=== PATIENT | male | born 1950 | race Caucasian/White ===

== ENCOUNTER 2020-06-14 12:51 | Inpatient (IN) | payer OTHER ==
[~2020-06-14] VITALS: Ht 175.3 cm; Wt 53.3 kg
[2020-06-14] MEDS ORDERED: ASPirin 81 mg TAB PO ONE (13:00)
[2020-06-14] MEDS ORDERED: LABETALOL HCL 5 MG/ML 4ML SYRINGE IV ONE (13:00)
[2020-06-14 13:47] LABS: Basophils # (auto) 0.1 10 ^3/uL (0-0.2); Basophils % (auto) 0.9 % (0.0-2.0); Eosinophils # (auto) 0.2 10 ^3/uL (0-0.8); Eosinophils % (auto) 2.7 % (0.0-7.0); Hematocrit 45.1 % (41.0-53.0); Hemoglobin 15.4 g/dL (13.5-17.5); Lymphocytes % (auto) 31.8 % (10.0-50.0); Mean Corpuscular Hemoglobin 31.5 pg (28.0-32.0); Mean Corpuscular Hgb Conc. 34.1 g/dL (32.0-36.0); Mean Corpuscular Volume 92.5 fL (80.0-100.0); Monocytes # (auto) 0.6 10 ^3/uL (0-1.3); Monocytes % (auto) 8.6 % (0.0-12.0); Neutrophils # (auto) 3.6 10 ^3/uL (1.6-8.6); Platelet Count (auto) 290 10^3/uL (140-450); Red Blood Cells 4.88 10^6/uL (4.5-5.90); Red Cell Distribution Width 14.1 % (11.8-14.3); White Blood Cell 6.4 10^3/uL (4.4-10.8)
[2020-06-14 14:09] LABS: Alanine Aminotransferase 23 U/L (16-61); Albumin 4.3 g/dL (3.4-5.0); Anion Gap 7 (5-15); Aspartate Aminotransferase 18 U/L (15-37); Blood Urea Nitrogen 15 mg/dL (7-18); Calcium 9.1 mg/dL (8.5-10.1); Carbon Dioxide 28 mmol/L (21-32); Chloride 103 mmol/L (98-107); GFR African American 81 mL/min; GFR Non-African American 67 mL/min; Glucose 115 mg/dL (74-106); Magnesium 1.9 mg/dL (1.6-2.6); Potassium 3.9 mmol/L (3.5-5.1); Sodium 138 mmol/L (136-145)
[2020-06-14 14:26] LABS: Alkaline Phosphatase 118 U/L (45-117); Bilirubin, Total 0.5 mg/dL (0.2-1.0); Total Protein 8.2 g/dL (6.4-8.2)
[2020-06-14] MEDS ORDERED: MORPHINE SULF INJ 2 MG/ML SYRINGE 1ML IV PRN ×2 (15:15)
[2020-06-14] MEDS ORDERED: DEXTROSE (50%) 50ML SYRG IV PRN (15:15)
[2020-06-14] MEDS ORDERED: ONDANSETRON HCL 4 MG/2 ML VIAL IV PRN (15:15)
[2020-06-14] MEDS ORDERED: NITROGLYCERIN 0.4 MG SL TAB SL PRN (15:15)
[2020-06-14] MEDS ORDERED: ACETAMINOPHEN 500 MG TAB PO PRN (15:15)
[2020-06-14] MEDS ORDERED: HYDROcodone-ACET 5/325MG TAB PO PRN (15:15)
[2020-06-14] MEDS: InsuLIN REG 1unit/0.01ml Soln (100units/ml) SC SCH ×2 (17:00→22:00)
[2020-06-14] MEDS: ACCU-CHEK COMFORT CURVE STRIP VI SCH ×2 (17:06→22:34)
--- NOTE | 2020-06-14 17:51 | NUR ---
Telemetry admit from ER SHERLYN SHERMAN admitted to Telemetry unit after SBAR received. Patient orienteD TO primary RN, unit, room, bed, and unit policies regarding patient care and visiting hours. Patient now on continuous telemetry monitoring, tele box #49 and telemetry reading on arrival to unit is sinus rhythm HR 87. Patient weighed by bedscale and encouraged to call if they need something. All questions and concerns addressed, patient verbalized understanding.
[2020-06-14] MEDS ORDERED: METF-370 PO (18:32)
[2020-06-14] MEDS ORDERED: BENA40TA83 PO (18:32)
[2020-06-14] MEDS ORDERED: ATEN50TA PO (18:32)
[2020-06-14] MEDS ORDERED: DOXA1TAB42 PO ×2 (18:32)
[2020-06-14] MEDS ORDERED: ATOR20TA50 PO (18:32)
[2020-06-14] MEDS ORDERED: HYDR25TA4 PO (18:32)
[2020-06-14 19:02] LABS: Cholesterol 135 mg/dL (< 200)
[2020-06-14 19:04] LABS: HDL Cholesterol 47 mg/dL (40-59); LDL Cholesterol 72 mg/dL (< 100); Triglycerides 125 mg/dL (< 150)
--- NOTE | 2020-06-14 19:09 | NUR ---
PATIENT POCKET KNIFE COLLECTED AND PAGED SECURITY. AWAITING SECURITY TO CALL BACK AND DAIRY FROZEN MANAGER PATIENT BELONGINGS. POCKET KNIFE GIVEN TO THE PRIMARY RN, FILIBERTO.
[2020-06-14] MEDS ORDERED: LOVA40TA72 PO (19:12)
--- NOTE | 2020-06-14 19:40 | NUR ---
Opening Shift Note Assumed care of patient, awake and alert. No S/S of distress/SOB or pain. Discussed on POC and to be NPO after midnight. For stress test tomorrow. Instructed to call for assist PRN, patient verbalized understanding, call light within reach, will continue to monitor for changes Q1hr and PRN.
[2020-06-14 20:00] VITALS: BP 138/80
[2020-06-14 22:00] VITALS: BP 138/80
[2020-06-14] MEDS: ATORVASTATIN 20 MG TAB PO SCH (22:00)
[2020-06-14] MEDS: METOPROLOL TARTRATE 25 MG TAB PO SCH (22:00)
--- NOTE | 2020-06-15 02:30 | NUR ---
Covid swab done per protocol prior to procedure and sent to lab
[2020-06-15 05:00] VITALS: BP 112/67
--- NOTE | 2020-06-15 05:20 | NUR ---
IV insertion IV access obtained, via clean sterile technique by inserting 22 gauge catheter at LFA after [1] attempt(s). IV secured properly. No trauma to site. Patient tolerated well. NOTE: []
[2020-06-15] MEDS: InsuLIN REG 1unit/0.01ml Soln (100units/ml) SC SCH ×4 (07:00→21:16)
[2020-06-15] MEDS: ACCU-CHEK COMFORT CURVE STRIP VI SCH ×4 (07:00→21:05)
[2020-06-15 08:00] VITALS: BP 138/80
[2020-06-15] MEDS ORDERED: ADENOSINE 46 MG in GIVE UN-DILUTED 0 ML IV STA (08:18)
[2020-06-15 09:00] VITALS: BP 135/85
[2020-06-15] MEDS ORDERED: FAMOTIDINE 20 MG TAB PO SCH ×2 (10:00)
[2020-06-15] MEDS: MAGNESIUM OXIDE 400 MG TAB PO SCH (10:14)
[2020-06-15] MEDS: ASPirin 81 mg TAB PO SCH (10:14)
[2020-06-15] MEDS: NICOTINE 7MG/24HR TOPICAL PATCH TD SCH (10:15)
[2020-06-15] MEDS: METOPROLOL TARTRATE 25 MG TAB PO SCH ×2 (10:15→21:06)
[2020-06-15 13:00] VITALS: BP 114/71
--- NOTE | 2020-06-15 13:09 | NUR ---
REPORT GIVEN TO [place] FELDER TO ASSUME CARE.
--- NOTE | 2020-06-15 13:10 | NUR ---
Opening note Assumed care of patient, patient is alert and orientated x4. No sob or distress noted. Bed is locked in lowest position. Side rails are up x2. POC Discussed. Patient laying in bed. All questions answered at this time. Will continue to monitor. q1hr and PRN.
--- NOTE | 2020-06-15 16:00 | NUR ---
Patient reports that he walks fine without symptoms and does not need P.T. intervention.
[2020-06-15 17:00] VITALS: BP 124/80
[2020-06-15] MEDS: ATORVASTATIN 20 MG TAB PO SCH (21:05)
[2020-06-15 22:00] VITALS: BP 133/77
[2020-06-16 05:00] VITALS: BP 103/68
[2020-06-16 06:13] LABS: Basophils # (auto) 0.1 10 ^3/uL (0-0.2); Basophils % (auto) 0.6 % (0.0-2.0); Eosinophils # (auto) 0.3 10 ^3/uL (0-0.8); Eosinophils % (auto) 3.1 % (0.0-7.0); Hematocrit 43.6 % (41.0-53.0); Hemoglobin 14.8 g/dL (13.5-17.5); Lymphocytes # (auto) 2.5 10 ^3/uL (0.4-5.4); Lymphocytes % (auto) 30.2 % (10.0-50.0); Mean Corpuscular Hemoglobin 31.2 pg (28.0-32.0); Mean Corpuscular Hgb Conc. 33.9 g/dL (32.0-36.0); Monocytes # (auto) 0.8 10 ^3/uL (0-1.3); Monocytes % (auto) 10.3 % (0.0-12.0); Neutrophils # (auto) 4.5 10 ^3/uL (1.6-8.6); Neutrophils % (auto) 55.8 % (37.0-80.0); Nucleated Red Blood Cells % 0.1 %; Platelet Count (auto) 289 10^3/uL (140-450); Red Blood Cells 4.74 10^6/uL (4.5-5.90); Red Cell Distribution Width 13.9 % (11.8-14.3); White Blood Cell 8.2 10^3/uL (4.4-10.8)
[2020-06-16] MEDS: ACCU-CHEK COMFORT CURVE STRIP VI SCH ×2 (06:23→11:27)
[2020-06-16] MEDS: InsuLIN REG 1unit/0.01ml Soln (100units/ml) SC SCH ×2 (06:23→11:27)
[2020-06-16 06:30] LABS: Magnesium 2.6 mg/dL (1.6-2.6); Potassium 3.6 mmol/L (3.5-5.1)
[2020-06-16 06:32] LABS: BUN/Creatinine Ratio 17.3
--- NOTE | 2020-06-16 07:22 | NUR ---
Closing note Endorsed care to day shift BRADFORD Resendiz. no sob or distress noted.
--- NOTE | 2020-06-16 07:30 | NUR ---
Opening Shift Note Assumed patient care from NOC RN. Patient currently sitting up in bed eating breakfast, no signs of distress at this time. Denies chest pain/palpitations and SOB at this time. Safety precautions in place, will continue to monitor q1hr and PRN. Call light is within reach.
[2020-06-16 08:52] VITALS: BP 124/61
[2020-06-16] MEDS: ASPirin 81 mg TAB PO SCH (09:26)
[2020-06-16] MEDS: MAGNESIUM OXIDE 400 MG TAB PO SCH (09:26)
[2020-06-16] MEDS: NICOTINE 7MG/24HR TOPICAL PATCH TD SCH (09:27)
[2020-06-16] MEDS: METOPROLOL TARTRATE 25 MG TAB PO SCH (09:28)
--- NOTE | 2020-06-16 11:45 | NUR ---
at Bedside Dr. Courtney at bedside discussing plan of care with patient. Per Dr. Courtney, if cleared by cardio, patient may discharge today. MD aware that patient is refusing home health at this time.
--- NOTE | 2020-06-16 12:15 | NUR ---
Assessment Patient is a 69-year-old male who is alert and oriented. Prior to admission patient lived home with his and functioned independently. Per patient he can care for his own ADL's. Per patient he does not use any medical equipment now. Per patient he will return home to his prior living arrangements post discharge and family will transport him home. Advised patient there is a social service consult for home health safety evaluation, physical therapy, medication management and vitals. Patient refused service stating he has great family support. Informed patient he has the right to participate in all discharge planning. Patient verbalized understanding and agreed to discharge plan. Informed BRADFORD Resendiz and , Dr. Courtney. Addendum: 06/16/20 at 1219 by JAMES GANDARA Amended: Links added.
[2020-06-16 13:00] VITALS: BP 116/73
--- NOTE | 2020-06-16 13:15 | NUR ---
at Station Dr. Lane at station. Per , will discuss echo and stress test results with Dr. Rod. Will await MD orders.
--- NOTE | 2020-06-16 15:00 | NUR ---
Cardio Clearance Per Dr. Lane, patient clear for discharge. Patient to be provided with caffeine abuse and hydration information.
[2020-06-16 15:40] VITALS: BP 116/73
[2020-06-16 16:31] VITALS: BP 110/82
--- NOTE | 2020-06-16 16:45 | NUR ---
Discharge Discharge instructions given as ordered. Encourage to follow up with PMD as instructed. All questions and concerns addressed. Patient verbalized understanding. Medication reconciliation form completed and copy given to patient. Belongings held by Security returned to patient. IVs removed with catheters intact, pressure dressing applied. Telemetry unit returned to ICU. Patient ambulated to vehicle with all personal belongings, accompanied by staff and family member. No distress noted at time of departure. Patient provided with discharge instructions included handout on caffeine abuse. Patient instructed to minimize caffeine intake and increase oral hydration per Dr. Lane request. Patient verbalized understanding.
== END 2020-06-16 16:45 | disposition home or self-care (01) | DRG 310 ==
LOC: ER 12:51 → TELE 12:52 → TELE-WESTW 17:51
PROVIDERS: ADMIT Nurse Practitioner Acute Care; ATTEND Internal Medicine
DX: R00.2 Palpitations (principal); R42 Dizziness and giddiness; I10 Essential (primary) hypertension; J44.9 Chronic obstructive pulmonary disease, unspecified; E11.9 Type 2 diabetes mellitus without complications; E78.5 Hyperlipidemia, unspecified; F17.210 Nicotine dependence, cigarettes, uncomplicated; Z20.828 Contact with and (suspected) exposure to other viral communicable diseases; Z79.84 Long term (current) use of oral hypoglycemic drugs; Z80.9 Family history of malignant neoplasm, unspecified; R53.1 Weakness
CPT/HCPCS: 36415; 71046; 78452; 80048; 80053; 80061; 82962; 83036; 83735; 84443; 84484; 85025; 85379; 87426; 93005; 93017; 93306; G0378; J0153

== ENCOUNTER 2021-11-19 17:54 | Emergency (ER) | payer OTHER ==
[~2021-11-19] VITALS: Ht 172.7 cm; Wt 63.5 kg
[~2021-11-19 17:54] MED LIST: ATEN50TA PO; ATOR20TA50 PO; BENA40TA83 PO; DOXA1TAB42 PO; LOVA40TA72 PO
[2021-11-19 17:58] VITALS: BP 151/94
[2021-11-19 20:54] LABS: Urine Bacteria MANY /hpf (None Seen); Urine Blood 3+ /uL (Negative); Urine Mucus FEW (None Seen); Urine Specific Gravity 1.022 (1.001-1.035); Urine WBC 89 /hpf (0 - 3); Urine WBC Clumps PRESENT /hpf (None Seen)
[2021-11-19] MEDS ORDERED: CIPROFLOXACIN HCL 500 MG TAB PO ONE (21:00)
[2021-11-19] MEDS ORDERED: CIPR-173 PO (21:06)
== END 2021-11-19 21:16 | disposition home or self-care (01) ==
LOC: ER 18:04
DX: N39.0 Urinary tract infection, site not specified (principal); I10 Essential (primary) hypertension; E11.9 Type 2 diabetes mellitus without complications; J44.9 Chronic obstructive pulmonary disease, unspecified; E78.5 Hyperlipidemia, unspecified; F17.210 Nicotine dependence, cigarettes, uncomplicated; Z90.89 Acquired absence of other organs; Z79.2 Long term (current) use of antibiotics; Z79.899 Other long term (current) drug therapy
CPT/HCPCS: 81001

== ENCOUNTER 2022-04-06 12:15 | Emergency (ER) | payer OTHER ==
[~2022-04-06] VITALS: Ht 175.3 cm; Wt 61.3 kg
[~2022-04-06 12:15] MED LIST changes: +CIPR-173 PO
[2022-04-06 13:48] LABS: Basophils # (auto) 0 10 ^3/uL (0-0.2); Basophils % (auto) 0.7 % (0.0-2.0); Eosinophils # (auto) 0.1 10 ^3/uL (0-0.8); Eosinophils % (auto) 2.2 % (0.0-7.0); Hematocrit 42.7 % (41.0-53.0); Hemoglobin 14.2 g/dL (13.5-17.5); Lymphocytes # (auto) 1.5 10 ^3/uL (0.4-5.4); Mean Corpuscular Hemoglobin 30.5 pg (28.0-32.0); Mean Corpuscular Hgb Conc. 33.3 g/dL (32.0-36.0); Mean Corpuscular Volume 91.6 fL (80.0-100.0); Monocytes # (auto) 0.6 10 ^3/uL (0-1.3); Neutrophils # (auto) 3.4 10 ^3/uL (1.6-8.6); Neutrophils % (auto) 60.1 % (37.0-80.0); Nucleated Red Blood Cells % 0.1 %; Red Blood Cells 4.66 10^6/uL (4.5-5.90); Red Cell Distribution Width 14.2 % (11.8-14.3); White Blood Cell 5.6 10^3/uL (4.4-10.8)
[2022-04-06 14:09] LABS: Calcium 9.1 mg/dL (8.5-10.1); Potassium 3.7 mmol/L (3.5-5.1)
[2022-04-06 14:12] LABS: BUN/Creatinine Ratio 10.9; Bilirubin, Total 0.4 mg/dL (0.2-1.0); Total Protein 7.4 g/dL (6.4-8.2)
[2022-04-06 15:10] LABS: Urine Bacteria NONE SEEN /hpf (None Seen); Urine Blood 3+ /uL (Negative); Urine Specific Gravity 1.016 (1.001-1.035); Urine WBC <1 /hpf (0 - 3)
[2022-04-06] MEDS ORDERED: NITR-87 PO (17:04)
[2022-04-06 18:57] VITALS: BP 132/80
== END 2022-04-06 18:57 | disposition home or self-care (01) ==
LOC: ER 12:15
DX: N39.0 Urinary tract infection, site not specified (principal); I10 Essential (primary) hypertension; J44.9 Chronic obstructive pulmonary disease, unspecified; E11.9 Type 2 diabetes mellitus without complications; E78.5 Hyperlipidemia, unspecified; F17.210 Nicotine dependence, cigarettes, uncomplicated; Z90.89 Acquired absence of other organs; Z79.2 Long term (current) use of antibiotics; Z79.899 Other long term (current) drug therapy
CPT/HCPCS: 36415; 80053; 81001; 84484; 85025